=== PATIENT | female | born 1960 | race Caucasian/White ===

== ENCOUNTER 2023-08-30 06:30 | Day surgery (SDC) | payer BC, SELFPAY ==
[2023-08-29 13:13] VITALS: BMI 38.6
[2023-08-29 13:48] LABS: % Basophils 0.7 % (0-2); % Immature Granulocytes 0.4 % (0-0.5); % Lymphocytes 27.3 % (20.5-51.1); % Monocytes 5.3 % (1.7-9.3); % Neutrophils 63.3 % (42.2-75.2); Absolute Basophils 0.1 10^3/uL (0-0.2); Absolute Eosinophils 0.3 10^3/uL (0-0.7); Absolute Lymphocytes 2.3 10^3/uL (1.2-3.4); Absolute Monocytes 0.4 10^3/uL (0.1-0.6); Absolute Neutrophils 5.2 10^3/uL (1.4-6.5); Hematocrit 36.1 % (37.0-47.0); Hemoglobin 12.5 g/dL (12.0-16.0); Mean Corp Hgb Conc. 34.6 g/dL (33.0-37.0); Mean Corpuscular Hgb 30.6 pg (27.0-31.0); Mean Corpuscular Volume 88.3 fL (81.0-99.0); Mean Platelet Volume 8.1 fL (7.4-10.4); Nucleated Red Blood Cells % 0 %; Platelet Count 335 10^3/uL (130-400); Red Blood Cell Count 4.09 10^6/uL (4.20-5.40); Red Cell Dist. Width 13.5 % (11.5-14.5); White Blood Cell Count 8.2 10^3/uL (4.8-10.8)
[2023-08-29 13:59] LABS: Blood Urea Nitrogen 9 mg/dl (7-17); Calcium 9.8 mg/dl (8.4-10.2); Carbon Dioxide 27 mmol/L (22-30); Chloride 102 mmol/L (98-107); Estimated Creatinine Clearance 90 ml/min; Glucose 96 mg/dl (70-99); Potassium 4.1 mmol/L (3.5-5.1); Sodium 136 mmol/L (135-145); eGFR > 60.00
[2023-08-30 08:51] VITALS: BMI 38.6
[2023-08-30 08:52] VITALS: BP 167/109
[2023-08-30] MEDS: NORMOSOL-R 1000 IV (09:20)
[2023-08-30 10:03] VITALS: BP 130/74; BP_SYST 12
--- NOTE | 2023-08-30 10:11 | W.IMMPOSTOP ---
Surgical Immed Post Op Note
-
Primary Surgeon: Darleen Garcia DO
Assisting Surgeon: none
Pre-op Diagnosis: Thickened endometrial lining on Ultrasound
Post-op Diagnosis: same, endometrial polyp
Procedure Performed: Hysteroscopy D&C polypectomy
Anesthesia Type: MAC IV sedation Dr. Samaniego
Specimen / Cultures: 1. endocervical curettings 2. endometrial curettings and polyp
Estimated Blood Loss: 2ml
Fluid deficit:45 ml
Complications: none
Operative Findings: Uterus sounded to 8 cm, endometrial polyp noted. Bilateral tubal ostia seen.
Counts correct times 2.
Stable to recovery.
Dictated
[2023-08-30 10:15] VITALS: BP 130/83
[2023-08-30 10:30] VITALS: BP 150/89
[2023-08-30 11:00] VITALS: BP 130/77
== END 2023-08-30 11:15 | disposition home or self-care (01) ==
LOC: SDS 06:30
PROVIDERS: ATTENDING PHYSICIAN Obstetrics & Gynecology; FAMILY PHYSICIAN Family Medicine
DX: N84.0 Polyp of corpus uteri (principal); R93.89 Abnormal findings on diagnostic imaging of other specified body structures; D26.1 Other benign neoplasm of corpus uteri
CPT/HCPCS: 58558; 88305; 36415; 80048; 85025; 86850; 86900; 86901; 88341; 88342; 93005

== ENCOUNTER → 2023-09-19 20:06 | Outpatient (REF) | payer BC, SELFPAY ==
--- NOTE | 2023-08-30 09:28 | W.SUR.PREOP ---
Pre-Operative Surgical Note
-
I have examined this patient prior to the performance of the scheduled procedure.
The patient's condition is unchanged from the time of the current History and
Physical and the patient is able to undergo the scheduled procedure.
== END ==
LOC: MRI 3T 20:06
PROVIDERS: ATTENDING PHYSICIAN Obstetrics & Gynecology; FAMILY PHYSICIAN Family Medicine
DX: D39.11 Neoplasm of uncertain behavior of right ovary (principal); R93.89 Abnormal findings on diagnostic imaging of other specified body structures
CPT/HCPCS: 72197; A9575

== ENCOUNTER → 2023-10-02 17:14 | Outpatient (REF) | payer BC, SELFPAY | LOC: MRI 17:14 | PROVIDERS: ATTENDING PHYSICIAN Physician Assistant Medical; FAMILY PHYSICIAN Family Medicine | DX: K83.8 Other specified diseases of biliary tract (principal) | CPT/HCPCS: 74183; A9575 ==

== ENCOUNTER 2023-11-08 06:32 | Day surgery (SDC) | payer BC, SELFPAY ==
[2023-10-25 08:56] LABS: % Basophils 0.7 % (0-2); % Eosinophils 3.6 % (0-6); % Immature Granulocytes 0.1 % (0-0.5); % Lymphocytes 23.6 % (20.5-51.1); % Monocytes 6.5 % (1.7-9.3); % Neutrophils 65.5 % (42.2-75.2); Absolute Basophils 0.1 10^3/uL (0-0.2); Absolute Eosinophils 0.3 10^3/uL (0-0.7); Absolute Lymphocytes 1.7 10^3/uL (1.2-3.4); Absolute Monocytes 0.5 10^3/uL (0.1-0.6); Absolute Neutrophils 4.6 10^3/uL (1.4-6.5); Hematocrit 35.7 % (37.0-47.0); Hemoglobin 12.5 g/dL (12.0-16.0); Mean Corpuscular Hgb 30.8 pg (27.0-31.0); Mean Corpuscular Volume 87.9 fL (81.0-99.0); Mean Platelet Volume 8.4 fL (7.4-10.4); Nucleated Red Blood Cells % 0 %; Platelet Count 336 10^3/uL (130-400); Red Blood Cell Count 4.06 10^6/uL (4.20-5.40); Red Cell Dist. Width 13.3 % (11.5-14.5)
[2023-10-25 09:35] LABS: Blood Urea Nitrogen 11 mg/dl (7-17); Calcium 9.4 mg/dl (8.4-10.2); Carbon Dioxide 29 mmol/L (22-30); Chloride 104 mmol/L (98-107); Glucose 121 mg/dl (70-99); Potassium 4.2 mmol/L (3.5-5.1); Sodium 138 mmol/L (135-145); eGFR > 60.00
[2023-10-25 13:42] VITALS: BMI 36.8
--- NOTE | 2023-10-25 14:03 | PTCARENOTE ---
Abnormal EKG 10/25/23. Dr. Deutsch aware. No intervention needed.
[2023-11-08] VITALS (21 sets, daily range): BP systolic 123–169; BP diastolic 74–102; BMI 37.2
[2023-11-08] MEDS: TYLENOL 1000 MG PO (10:16)
[2023-11-08] MEDS: NORMOSOL-R 1000 IV ×2 (10:17→18:27)
[2023-11-08] MEDS: HEPARIN 5000 UNITS SC (10:17)
--- NOTE | 2023-11-08 10:33 | W.SUR.PREOP ---
Pre-Operative Surgical Note
-
I have examined this patient prior to the performance of the scheduled procedure.
The patient's condition is unchanged from the time of the current History and
Physical and the patient is able to undergo the scheduled procedure.
Patient would like to go home today after recovery. Asked anesthesia to please do TAP block.
DW patient
--- NOTE | 2023-11-08 13:52 | W.IMMPOSTOP ---
Addendum entered and electronically signed by Darleen Garcia DO 11/08/23 23:01:
TAP block performed after intubation by Dr. Steel
Original Note:
Surgical Immed Post Op Note
-
Primary Surgeon: Darleen Garcia DO
Assisting Surgeon: Dr. Gaston assisted with robotic assisted retroperitoneal exploration and enterolysis
Pre-op Diagnosis: Large right adnexal cystic mass
Post-op Diagnosis: same
Procedure Performed: Laparoscopic lysis adhesions, robotic laparoscopic TLH BSO (Dr. Garcia), Robotic assisted retropertioneal exploration and Enterolysis (Dr. Gaston)
Anesthesia Type: general ET Dr. Steel
Specimen / Cultures: 1. pelvic washings 2. uterus, cervix, left tube and ovary (specimen all attached), right tube and ovary with collapsed cyst (specimen detached from uterus)
Estimated Blood Loss: 20ml
Complications: none
Operative Findings: Normal sized uterus, normal appearing uterus, tubes. Left tube and ovary with pelvic adhesions. Right ovary contains a large approx 10 cm simple cyst with smooth surface and normal appearing right fallopian tube. Omental
adhesion to anterior abdominal wall in midline-lysed.
Cesar 500ml clear yellow urine
Counts correct times 2.
Stable to recovery.
--- NOTE | 2023-11-08 14:18 | OR.RPT ---
Operative Report
Operative Report
Procedure date: November 07, 2023
Preoperative diagnosis right pelvic mass/ovary cyst
Postoperative diagnosis same plus intra-abdominal and retroperitoneal adhesions
Surgeon: Long Gaston MD
Procedure: Robotic assisted laparoscopic retroperitoneal exploration, and enterolysis and assistance with total laparoscopic hysterectomy bilateral salpingo-oophorectomy
Procedure in detail: I was called to the operating room by Dr. Garcia during the course of the procedure. Robotic system was already docked and the patient was already in Trendelenburg instruments were already in place. Upon my arrival lysis of
adhesion was performed overlying the right and left side of the pelvis. I used grasping forceps on the right side and bipolar cautery on the left side and scissors on the right. Round ligament had already been ligated, anterior and posterior
leaves of the broad ligament dissected open, the course of the ureter was identified on the right side, a window was created between the ureter and IP ligament. The large right simple appearing ovarian cyst on the right was sealed and divided from
the uterus and the infundibulopelvic ligament portion was isolated sealed 3 times and eventually divided. The cyst was left in the abdomen. Next our attention was turned to the left side. Extensive adhesions between the left IP ligament and
sigmoid colon was taken down, posterior leaf of the broad ligament dissected open, retroperitoneum was explored and the course of ureter was identified. Avascular plane was developed between the IP ligament and ureter IP ligament was sealed 3 times
and divided the left tube and ovary was left attached to the uterus. Extensive adhesions were present on the anterior cul-de-sac and these were taken down and the vesicouterine space was developed all the way down to the level of CHILO ring. Both
uterine arteries were sealed 3 times and divided and then a circumferential incision was made eventually over the CHILO ring to detach the uterus and cervix from the vagina. I noted that the primary team removed the uterus and cervix through the
vagina attached to the specimen was also left tube and ovary. The right ovarian mass was brought down to the posterior cul-de-sac, we made a incision on its apical aspect and drained it of approximately 600 cc of fluid and once it was collapsed
there was brought out through the vagina. There was no significant leakage of any of the fluid in the peritoneal cavity. I turned the case over to gynecology team for performing closure of the vaginal cuff and completion of laparoscopy. Counts of
labs instruments and needle was correct x 2. I was present and scrubbed for entire procedure as dictated above.
--- NOTE | 2023-11-08 14:24 | SUR.PHASEI ---
Rec'd unresponsive on stretcher, HOb elevated low fowlers on arrival, snoring loudly, sandra pad dry
--- NOTE | 2023-11-08 14:39 | SUR.PHASEI ---
More alert, oriented x 3 by RN, states has 'to pee' bedpan given chetan well
--- NOTE | 2023-11-08 14:50 | SUR.PHASEI ---
Unable to void on bedpan, c/o 'bladder Pain' reassured
[2023-11-08] MEDS: DILAUDID 0.25 MG IV ×2 (14:53→15:15)
--- NOTE | 2023-11-08 15:02 | SUR.PHASEI ---
Med for bladder pressure discomfort, states 'feels like a bladder spasm' reassured
--- NOTE | 2023-11-08 15:20 | SUR.PHASEI ---
bladder scan reveals 375 in bladder discomfort for scan med chetan well
--- NOTE | 2023-11-08 15:32 | SUR.PHASEI ---
VSS lightly dozing
[2023-11-08] MEDS: Pyridium 200 MG PO ×2 (15:47→21:34)
--- NOTE | 2023-11-08 15:51 | SUR.PHASEI ---
More alert, med for bladder spasm, chetan well, reassured pt stating 'Im not going home like this' reassured
--- NOTE | 2023-11-08 16:05 | SUR.PHASEI ---
More alert, after voiding on bedpan states pain is now a sharp pain, repositioned for comfort chetan well encouraged to rest Report to Lucho Hebert RN
--- NOTE | 2023-11-08 16:15 | W.PN.OBG.DWH ---
Today's Communication / Plan
-
23 hr obs overnight
parenteral pain meds
monitoring for appropriate voids and pain mgmt, bleeding
Anticipate dc in am
Assessment/Plan
-
A/P: : S/p RA TLH b/l salpingectomy, lysis adhesions, enterolysis
Right adnexal cystic mass
Will admit overnight for monitoring for analgesia and bleeding risk.
Anticipate dc in am.
reviewed dc instructions.
Erx sent to pharm
pyridium for bladder.
Reviewed op findings and involvement of Dr. Gaston in case for more complicated retroperitoneal dissection and enterolysis
Subjective Data
-
Postop check:
Seen in PACU. Pt reporting feeling bladder irriation and pain and does not feel able to go home today.
Has voided once
Objective Data
-
Laboratory Results
10/25/23 08:17
10/25/23 08:17
Vital Signs
Temp Pulse Resp BP Pulse Ox
98.2 F 99 14 133/82 97
11/08/23 14:19 11/08/23 16:00 11/08/23 16:00 11/08/23 16:00 11/08/23 16:15
VSS afeb
abd: soft NDNT inc cdi
no active vaginal bleeding
[2023-11-08] MEDS: DILAUDID 0.5 MG IV (16:18)
[2023-11-08] MEDS: TORADOL 15 MG IV (21:15)
[2023-11-08] MEDS: TYLENOL 650 MG PO (21:16)
[2023-11-08] MEDS: MYLICON 80 MG PO (21:24)
--- NOTE | 2023-11-08 23:22 | W.PN.UPDATE ---
Update Note
Progress Note Update
Checking in remotely on vitals.
Pt's BP has been elevated this evening.
Ordered her amlodipine 2.5 mg now due to elevated BPs.
[2023-11-08] MEDS: NORVASC 2.5 MG PO (23:38)
[2023-11-09] MEDS: TORADOL 15 MG IV ×2 (02:18→07:50)
[2023-11-09] MEDS: NORMOSOL-R 1000 IV (02:18)
[2023-11-09] MEDS: TYLENOL 650 MG PO ×2 (02:25→06:15)
[2023-11-09 03:43] VITALS: BP 124/77
[2023-11-09] MEDS: SYNTHROID 100 MCG PO (06:12)
[2023-11-09 07:35] VITALS: BP 140/85
[2023-11-09 08:45] LABS: % Basophils 0.2 % (0-2); % Eosinophils 0.1 % (0-6); % Immature Granulocytes 0.4 % (0-0.5); % Lymphocytes 16.6 % (20.5-51.1); % Monocytes 6.6 % (1.7-9.3); % Neutrophils 76.1 % (42.2-75.2); Absolute Lymphocytes 1.5 10^3/uL (1.2-3.4); Absolute Monocytes 0.6 10^3/uL (0.1-0.6); Absolute Neutrophils 6.9 10^3/uL (1.4-6.5); Hemoglobin 11.1 g/dL (12.0-16.0); Mean Corp Hgb Conc. 34.7 g/dL (33.0-37.0); Mean Corpuscular Volume 86.5 fL (81.0-99.0); Nucleated Red Blood Cells % 0 %; Platelet Count 308 10^3/uL (130-400); Red Cell Dist. Width 13.4 % (11.5-14.5)
[2023-11-09 09:45] LABS: Blood Urea Nitrogen 8 mg/dl (7-17); Carbon Dioxide 23 mmol/L (22-30); Chloride 101 mmol/L (98-107); Estimated Creatinine Clearance 89 ml/min; Potassium 3.5 mmol/L (3.5-5.1); Sodium 135 mmol/L (135-145)
--- NOTE | 2023-11-09 10:15 | W.PN.OBG.DWH ---
Today's Communication / Plan
-
d/c home today.
Assessment/Plan
-
63yo POD#1 s/p Laparoscopic lysis adhesions, robotic laparoscopic TLH BSO (Dr. Garcia), Robotic assisted retropertioneal exploration and Enterolysis (Dr. Gaston)
-afss
-patient is doing well post-op, has met all of her post-op milestones and is stable for dc home today. reviewed home care instructions. Rx already sent to pharmacy by surgeon. Patient advised to f/u in the office in 2 weeks for a post-op check
Subjective Data
-
feels well. had nausea overnight but this is improved. able to tolerate PO intake today. +ambulation, +void. slight spotting yesterday but this has also resolved. Pain is controlled. +flatus.
Objective Data
-
Laboratory Results
11/09/23 08:26
11/09/23 08:26
Vital Signs
Temp Pulse Resp BP Pulse Ox
98.3 F 112 16 140/85 97
11/09/23 07:35 11/09/23 07:35 11/09/23 07:35 11/09/23 07:35 11/09/23 07:35
Gen: nad
Abd: soft, nt, nd
Incision:c /d/i
Ext: no LE ttp, compression socks in place
[2023-11-09 10:31] VITALS: BP 146/79
--- NOTE | 2023-11-09 11:15 | CM ---
Carlos Manuel lives with spouse in a 2 story home, patient is independent with adl's and ambulation, no dme, Home when stable no needs.
Pharmacy: [facility]
PCP: Lexy Andrews
Plan; Home no needs.
== END 2023-11-09 11:08 | disposition home or self-care (01) ==
LOC: SDS 06:32
PROVIDERS: ATTENDING PHYSICIAN Obstetrics & Gynecology; FAMILY PHYSICIAN Family Medicine
DX: D27.0 Benign neoplasm of right ovary (principal); D25.9 Leiomyoma of uterus, unspecified
CPT/HCPCS: 58571; 88307; 36415; 80048; 80051; 82565; 84520; 85025; 86850; 86900; 86901; 88112; 93005

== ENCOUNTER 2024-01-27 20:39 | Emergency (ER) | payer BC, SELFPAY ==
[2024-01-27 20:45] VITALS: BP 184/102
--- NOTE | 2024-01-27 20:59 | ED.GENMED ---
History of Present Illness
<Chiquis Mason MD, Resident - Last Filed: 01/27/24 22:18>
General
Chief Complaint: Heart Rate Problem
Source: patient
Exam Limitations: none
Time Seen by Provider: 01/27/24 20:58
Nursing documentation reviewed up to this point in time: agreed with
Travel History
Have you traveled to any high risk areas for coronavirus over the past 14 days?: No
Have you had any contact with someone who has COVID-19?: No
Do you have any symptoms of coronavirus? Fever > 100 degrees, chills, cough, shortness of breath, sore throat, loss of taste or smell, muscle aches, or headache?: No
History of Present Illness
History of Present Illness:
63-year-old female presents to the hospital after evaluation by her primary care in the outpatient office, and was thought to have atrial fibrillation. Patient states that she has been having left-sided unilateral headaches for 3 to 4 days as if '
somebody slicing me', throbbing in nature, intermittent, nonradiating, nonpulsatile, not associated with any focal weakness, or change in sensations. She denies having any associated blurring of vision, nausea, vomitings, lightheadedness,
dizziness, swelling of feet, orthopnea, PND, shortness of breath, chest pain, palpitations. She called her headaches migraines, she states that she had a previous history of migraines (undiagnosed), but she had not experienced headaches in the last
few years. Over the last 1 and half months patient was on TOMAS or ARB inhibitor unsure which but states that this medication attributed to her GI symptoms-and she discontinued the medication and was switched to amlodipine by her primary.
This prompted her to see the primary care physician in the p.m. today.
Past history of thyroid surgery, currently hypothyroid, has been stable on levothyroxine.
Patient also states that she was recently diagnosed with prediabetes.
If applicable-neuro sx onset
Onset of symptoms known: No
Time pt last seen normal is known: No
Past History
<Chiquis Mason MD, Resident - Last Filed: 01/27/24 22:18>
Past History
ED Past Medical History: Other (Hypertension, hypothyroidism, recent onset headaches, impaired fasting glucose.)
ED Past Surgical History: Other (Thyroidectomy.)
Patient has exhibited threatening behavior?: No
PSI?: No
Family History
Family History: Other
Review of Systems
<Chiquis Mason MD, Resident - Last Filed: 01/27/24 22:18>
Review of Systems
Allergies reviewed?: Yes
Unable to obtain full review of systems at this time due to: dementia
All Other Systems: ROS reviewed and negative except as documented in HPI and ROS
Constitutional: Reports no symptoms
EENT: Reports no symptoms
Respiratory: Reports no symptoms
Cardiac: Reports no symptoms
ABD/GI: Reports no symptoms
: Reports no symptoms
Musculoskeletal: Reports no symptoms
Skin: Reports no symptoms
Neurological: Reports headache; Denies dizzy, weakness or numbness
Endocrine: Reports no symptoms
Hematologic/Lymphatic: Reports no symptoms
Psychiatric: Reports no symptoms
Phy Exam
<Chiquis Mason MD, Resident - Last Filed: 01/27/24 22:18>
Physical Exam
Physical Exam:
General appearance - well built, and well nourished.
HEENT -palpable click at TMJ left greater than right jaw opening, atraumatic,
Eyes - b/l Pupil reactive to accommodation reflex, extraocular movements - full and smooth
Ears - right ear - auditory canal clear, tympanic membrane visualized, light reflex present., left ear - auditory canal clear, tympanic membrane visualized, light reflex present.
Nose - septum intact, no turbinate hypertrophy
Oral cavity - pharynx appears normal, uvula midline, good dental hygiene.
Neck - no thyromegaly, no cervical lymphadenopathy
CVS - s1, s2 present. No murmurs, rubs and gallops.
Respiratory - b/l lobes clear to auscultation, no wheezes, rales and Ronchi.
Abdomen - soft, nontender, non-distended, no organomegaly, bowel sounds present.
Extremities - no clubbing, cyanosis, or edema
Neuro - normal strength, tone, and reflexes in all 4 extremities�
Psych - Good eye contact, effect - full, co-operative with physical exam.
Course
<Chiquis Mason MD, Resident - Last Filed: 01/27/24 22:18>
Orders/Labs/Results
Orders:
Orders
01/27/24 20:48
ECG [Electrocardiogram (*1)] Urgent
Reason for Study: Hypertension, Benign
EKG- Treatment ONCE
01/27/24 21:24
Electrocardiogram (*1) Urgent
Reason for Study: Abnormal EKG
Other Reason for Exam: Posterior anterior fasicular block
EKG- Treatment ONCE
01/27/24 21:36
Complete Blood Count/With Diff Urgent
Comprehensive Metabolic Panel Urgent
Troponin I Stat
01/27/24 21:40
Amlodipine [Norvasc] 2.5 mg PO DAILY STA
Amlodipine [Norvasc] 2.5 mg PO NOW STA
01/27/24 22:00
Amlodipine [Norvasc] 2.5 mg PO BID
Amlodipine [Norvasc] 2.5 mg PO HS
Abnormal Lab Results
01/27/24
21:36
RBC 3.98 L 10^6/uL
(4.20-5.40)
Hct 33.5 L %
(37.0-47.0)
Glucose 140 H mg/dl
(70-99)
Total Bilirubin 0.1 L mg/dl
(0.2-1.3)
AST 38 H U/L
(14-36)
ALT 43 H U/L
(0-35)
01/27/24 21:36
01/27/24 21:36
Vital Signs
Initial and Last Documented VS:
Initial Vital Signs
Temp Pulse Resp BP Pulse Ox
98.2 F 90 18 184/102 98
01/27/24 20:45 01/27/24 20:45 01/27/24 20:45 01/27/24 20:45 01/27/24 20:45
Last Documented Vital Signs
Temp Pulse Resp BP Pulse Ox
98.2 F 88 13 170/90 98
01/27/24 20:45 01/27/24 22:00 01/27/24 22:00 01/27/24 22:00 01/27/24 21:38
<Jair Davidson DO - Last Filed: 01/27/24 22:19>
Orders/Labs/Results
Orders:
Orders
01/27/24 20:48
ECG [Electrocardiogram (*1)] Urgent
Reason for Study: Hypertension, Benign
EKG- Treatment ONCE
01/27/24 21:24
Electrocardiogram (*1) Urgent
Reason for Study: Abnormal EKG
Other Reason for Exam: Posterior anterior fasicular block
EKG- Treatment ONCE
01/27/24 21:36
Complete Blood Count/With Diff Urgent
Comprehensive Metabolic Panel Urgent
Troponin I Stat
01/27/24 21:40
Amlodipine [Norvasc] 2.5 mg PO DAILY STA
Amlodipine [Norvasc] 2.5 mg PO NOW STA
01/27/24 22:00
Amlodipine [Norvasc] 2.5 mg PO BID
Amlodipine [Norvasc] 2.5 mg PO HS
Abnormal Lab Results
01/27/24
21:36
RBC 3.98 L 10^6/uL
(4.20-5.40)
Hct 33.5 L %
(37.0-47.0)
Glucose 140 H mg/dl
(70-99)
Total Bilirubin 0.1 L mg/dl
(0.2-1.3)
AST 38 H U/L
(14-36)
ALT 43 H U/L
(0-35)
01/27/24 21:36
01/27/24 21:36
Vital Signs
Initial and Last Documented VS:
Initial Vital Signs
Temp Pulse Resp BP Pulse Ox
98.2 F 90 18 184/102 98
01/27/24 20:45 01/27/24 20:45 01/27/24 20:45 01/27/24 20:45 01/27/24 20:45
Last Documented Vital Signs
Temp Pulse Resp BP Pulse Ox
98.2 F 88 13 170/90 98
01/27/24 20:45 01/27/24 22:00 01/27/24 22:00 01/27/24 22:00 01/27/24 21:38
<Chiquis Mason MD, Resident - Last Filed: 01/27/24 22:18>
MDM/Problems Addressed
Differential Diagnosis Includes:
[place], acute CAD, hypertensive urgency, TIA, TMJ disorder, migraines without aura.
MDM/Problems Addressed:
Hypertensive urgency-amlodipine 2.5 mg p.o. given.
Chronic conditions affecting care: HTN
<Chiquis Mason MD, Resident - Last Filed: 01/27/24 22:18>
*Radiology
Radiology exam reviewed: radiology read reviewed
*Pulse Oximetry
Patient hypoxic: not evaluated
*EKG
Interpreted by ED Provider?: Yes
EKG Intrepretation Date: 01/27/24
EKG Intrepretation Time: 09:00
Interpretation: abnormal
Comparison EKG: changes noted
Heart Rate: 90
Rate: normal
Rhythm: PAC's
[place]: normal axis
Interval: normal interval
QRS Pattern: normal QRS
Ischemia: no ischemia
*Ornithology Teacher Interpretation
Rate: normal
Interpretation: normal
Rhythm: PAC's
*Critical Care Note
Total Time (30-74mins, 75-104mins- exclusive of procedures): Not Applicable
Data Reviewed
Review of Other/Old Records Reveals: Labs
Source: patient
<Chiquis Mason MD, Resident - Last Filed: 01/27/24 22:18>
Update Note
Update Note:
Patient's lab resulted-troponins less than 0.012, serum creatinine unremarkable, CBC unremarkable, mild transaminitis suspect secondary to fatty liver.
Amlodipine 2.5 mg p.o.-Home dose blood pressure medication given to the patient.
Follow-up with primary care in 1 week.
ED Attending Note
<Chiquis Mason MD, Resident - Last Filed: 01/27/24 22:18>
-
Portions of this chart may have been created with voice recognition software.� Occasional wrong word or��sound alike� substitutions may have occurred due to the inherent limitations of voice recognition software.
<Jair Davidson DO - Last Filed: 01/27/24 22:19>
ED Attending Note
Patient seen and examined by attending physician: Yes
I performed a history and physical exam of patient and discussed management with resident, I reviewed resident's note and agree with documented findings and plan of care.: Yes
ED Attending Note:
Patient is a 63-year-old female who is sent from her primary care physician's office for new onset atrial fibrillation. A review of the EKG from the office does not show atrial fibrillation but normal sinus rhythm with PACs. Otherwise EKGs is
unremarkable. Patient's first EKG here showed an abnormal axis so was repeated ensuring proper limb lead placement. The EKG is unchanged from previous. Patient went to her primary care physician's office secondary to 4 days of headaches which she
described as left frontal. Patient denies any photophobia, nausea or vomiting. Patient denies any visual or speech difficulties. Patient denies any neck pain. Patient denies any focal weakness or ataxia. Patient denied any recent illnesses or
injuries. Patient was switched off of her previous hypertensive medication in the spring after she had gallbladder and pancreas issues. Patient denies any chest pain, shortness of breath or palpitations. Patient denies any GI or symptoms.
Patient's blood pressure has been running high recently and her amlodipine was being increased from 2.5 to 5 mg. Patient has not changed weight or had any symptoms of being hyper or hypothyroid and her Synthroid has been consistent. On physical
exam the patient does not appear to be in any distress. Heart is regular without gallop or murmur. Lungs are clear. There is no neck vein distention. Patient's neck is supple. Abdomen soft nontender. Extremities without cyanosis, tenderness or
edema. Patient has good pulses bilaterally in the periphery. Reviewed the patient's EKG as well as her labs. Patient will be discharged.
Discharge Plan
Departure
Prescriptions:
No Action
levothyroxine [Synthroid] 100 mcg Tablet
100 mcg PO DAILY
albuterol sulfate 90 mcg/actuation Hfa Aerosol Inhaler
2 puff INHALATION Q6H PRN (Reason: sob)
magnesium Tablet
2 tab PO DAILY
amlodipine 2.5 mg Tablet
2.5 mg PO DAILY
acetaminophen 325 mg Tablet
650 mg PO SDS-[id number] PRN (Reason: mild pain) Qty: 0 0RF
ibuprofen 600 mg tablet
600 mg PO Q6H PRN (Reason: cramps/mild pain) Qty: 30 0RF
Referrals:
Nadwodny,Lexy A., DO [Family Provider] -
Interventions
Interventions:
*Risk Screen - Suicide Last Done: 01/27/24 21:21
*General Assessment Last Done: 01/27/24 20:45
*Neglect/Abuse Screening Last Done: 01/27/24 21:20
ED- Fall Risk Assessment Last Done: 01/27/24 21:21
*ED COVID-19 Vaccine History Last Done: 01/27/24 21:20
ED- Cardiac Assessment Last Done: 01/27/24 21:21
ED- Pulmonary Assessment Last Done: 01/27/24 21:21
Discharge Date and Time
Print Language: SWEDISH
[2024-01-27 21:19] VITALS: BP 157/83; BMI 39.1
[2024-01-27 21:38] VITALS: BP 160/90
[2024-01-27 21:43] LABS: % Basophils 0.8 % (0-2); % Eosinophils 3.1 % (0-6); % Immature Granulocytes 0.4 % (0-0.5); % Lymphocytes 28.3 % (20.5-51.1); % Neutrophils 60.4 % (42.2-75.2); Absolute Basophils 0.1 10^3/uL (0-0.2); Absolute Eosinophils 0.3 10^3/uL (0-0.7); Absolute Lymphocytes 2.3 10^3/uL (1.2-3.4); Absolute Monocytes 0.6 10^3/uL (0.1-0.6); Absolute Neutrophils 4.8 10^3/uL (1.4-6.5); Hematocrit 33.5 % (37.0-47.0); Mean Corp Hgb Conc. 35.8 g/dL (33.0-37.0); Mean Corpuscular Hgb 30.2 pg (27.0-31.0); Mean Corpuscular Volume 84.2 fL (81.0-99.0); Mean Platelet Volume 8.1 fL (7.4-10.4); Nucleated Red Blood Cells % 0 %; Platelet Count 327 10^3/uL (130-400); Red Blood Cell Count 3.98 10^6/uL (4.20-5.40); Red Cell Dist. Width 13.3 % (11.5-14.5)
[2024-01-27] MEDS: NORVASC 2.5 MG PO (21:46)
[2024-01-27 22:00] VITALS: BP 170/90
[2024-01-27 22:01] LABS: ALT (SGPT) 43 U/L (0-35); AST (SGOT) 38 U/L (14-36); Albumin 3.8 g/dl (3.5-5.0); Alkaline Phosphatase 67 U/L (38-126); Blood Urea Nitrogen 12 mg/dl (7-17); Calcium 9.2 mg/dl (8.4-10.2); Carbon Dioxide 28 mmol/L (22-30); Chloride 99 mmol/L (98-107); Estimated Creatinine Clearance 64 ml/min; Glucose 140 mg/dl (70-99); Potassium 3.5 mmol/L (3.5-5.1); Sodium 139 mmol/L (135-145); Total Bilirubin 0.1 mg/dl (0.2-1.3); Total Protein 6.4 g/dl (6.3-8.2); eGFR > 60.00
[2024-01-27 22:10] LABS: Troponin I < 0.012 ng/ml
[2024-01-27 22:26] VITALS: BP 150/98
== END 2024-01-27 22:34 | disposition home or self-care (01) ==
LOC: EMR 20:39
PROVIDERS: Student in an Organized Health Care Education/Training Program; EMERGENCY PHYSICIAN Emergency Medicine; FAMILY PHYSICIAN Family Medicine
DX: I16.0 Hypertensive urgency (principal); R51.9 Headache, unspecified; E89.0 Postprocedural hypothyroidism; Z79.899 Other long term (current) drug therapy
CPT/HCPCS: 99284; 80053; 84484; 85025; 93005

== ENCOUNTER 2024-04-13 17:39 | Inpatient (IN) | payer BC, SELFPAY ==
[2024-04-13 13:06] VITALS: BP 169/108
[2024-04-13 13:29] LABS: % Basophils 0.6 % (0-2); % Eosinophils 1.7 % (0-6); % Immature Granulocytes 0.3 % (0-0.5); % Lymphocytes 22.1 % (20.5-51.1); % Monocytes 5.4 % (1.7-9.3); % Neutrophils 69.9 % (42.2-75.2); Absolute Eosinophils 0.1 10^3/uL (0-0.7); Absolute Lymphocytes 1.5 10^3/uL (1.2-3.4); Absolute Monocytes 0.4 10^3/uL (0.1-0.6); Absolute Neutrophils 4.8 10^3/uL (1.4-6.5); Hematocrit 38.4 % (37.0-47.0); Hemoglobin 13.1 g/dL (12.0-16.0); Mean Corp Hgb Conc. 34.1 g/dL (33.0-37.0); Mean Corpuscular Hgb 30.3 pg (27.0-31.0); Mean Corpuscular Volume 88.9 fL (81.0-99.0); Mean Platelet Volume 8.1 fL (7.4-10.4); Nucleated Red Blood Cells % 0 %; Platelet Count 367 10^3/uL (130-400); Red Blood Cell Count 4.32 10^6/uL (4.20-5.40); Red Cell Dist. Width 13.3 % (11.5-14.5); White Blood Cell Count 6.9 10^3/uL (4.8-10.8)
[2024-04-13 13:42] LABS: ALT (SGPT) 667 U/L (0-35); AST (SGOT) 618 U/L (14-36); Albumin 4.3 g/dl (3.5-5.0); Alkaline Phosphatase 191 U/L (38-126); Blood Urea Nitrogen 7 mg/dl (7-17); Calcium 9.3 mg/dl (8.4-10.2); Carbon Dioxide 30 mmol/L (22-30); Chloride 100 mmol/L (98-107); Glucose 101 mg/dl (70-99); Lipase 91 U/L (23-300); Potassium 3.8 mmol/L (3.5-5.1); Sodium 140 mmol/L (135-145); Total Bilirubin 0.5 mg/dl (0.2-1.3); Total Protein 7.3 g/dl (6.3-8.2); eGFR > 60.00
--- NOTE | 2024-04-13 14:11 | ED.GENMED ---
History of Present Illness
General
Chief Complaint: Abdominal Pain
Source: patient
Exam Limitations: none
Time Seen by Provider: 04/13/24 14:04
Nursing documentation reviewed up to this point in time: agreed with
History of Present Illness
History of Present Illness:
Patient presents to ED secondary to intermittent upper abdominal pain. Abdominal pain described as sharp, radiating to the back, without alleviating or exacerbating factors. Denies fever or chills. Denies trauma. Patient has similar episode last
year. MRI at that time revealed gallstones. Afterwards, patient felt better after seeing stone with her bowel movements. Recently, once every 4 to 5 days, patient has been experiencing severe abdominal pain. Patient was evaluated by her primary
care physician this morning and referred to ED for an evaluation.
Past History
Past History
ED Past Medical History: Other (Hypertension, hypothyroidism, recent onset headaches, impaired fasting glucose.)
ED Past Surgical History: Other (Thyroidectomy.)
Patient has exhibited threatening behavior?: No
PSI?: No
Family History
Family History: Other
Review of Systems
Review of Systems
Allergies reviewed?: Yes
All Other Systems: ROS reviewed and negative except as documented in HPI and ROS
Constitutional: Reports no symptoms; Denies fever
EENT: Reports no symptoms
Respiratory: Reports no symptoms
Cardiac: Reports no symptoms
ABD/GI: Reports abdominal pain; Denies vomiting or diarrhea
Musculoskeletal: Reports no symptoms
Skin: Reports no symptoms
Neurological: Reports no symptoms
Phy Exam
Physical Exam
Physical Exam:
Physical Exam
General: no apparent distress, not acutely ill. afebrile
Head: nc/at. eomi
Neck: supple. no meningeal signs.
Heart: s1/s2 regular rate and rhythm, no murmur. equal radial pulses.
Lungs: no acute respiratory distress. clear bilaterally
Abdomen: normal bowel sounds. not tender.
Neuro: alert and oriented. no focal neurological deficits
Skin: no rash
Psychiatric: well kept. interactive and cooperative
Extremities: no edema. no calf tenderness.
Course
Orders/Labs/Results
Orders:
Orders
04/13/24 13:16
Complete Blood Count/With Diff Urgent
Comprehensive Metabolic Panel Urgent
Lipase Urgent
04/13/24 14:10
US Abdomen Complete/Upper Urgent
Comment:
Reason For Exam: RUQ/Epigastric pain
04/13/24 Dinner
Full Liquids
At Your Request: Full Participation
04/13/24 17:00
Admit/Transfer Patient As Directed
Co-Sign Provider:
Level of Care: Inpatient admission
Assign to:: Medical/Surgical
Physician / Group: Lexy Bertrand
Diagnosis: abdominal pain
Reason for Hospitalization: abdominal pain
Expected length of stay greater than two midnights?: Yes
ELOS- Estimated Length of Stay in days: 3
I certify the patient meets the requirements for IP care: Yes
PRN Pain Medication Management As Directed
May give lesser potent ordered pain med per pt: Yes
preference::
Protocol:: Medication orders for pain may be administered in a
manner that supports deferring to patient preference
when the pt is:
- Requesting an ordered lesser potent pain medication.
Least to most potent pain medications are defined
as: acetaminophen < NSAID < tramadol < opioids
(morphine, oxycodone, hydromorphone).
- Requesting a lesser dose of the same medication IF
ORDERED.
- Requesting a less intrusive route of administration
if both routes are prescribed by the provider (PO <
IV).
04/13/24 17:06
Code Status As Directed
Resuscitation Status: Full Code
04/13/24 19:45
HYDROmorphone [Dilaudid] 0.5 mg IV Q3HPRN PRN
Ondansetron Injectable [Zofran] 4 mg IV Q6HPRN PRN
04/13/24 19:45
Consult Gastroenterology [GASTROINTESTINAL CONSULT] Routine
Consulting Provider: Urvashi Olivares
Was physician already notified: Yes
SURGICAL CONSULT Routine
Consulting Provider: David Syzmanski
Was physician already notified: Yes
Activity As Directed
Activity Level: Ambulate
Vital Signs As Directed
Frequency: Per unit guidelines
Weight As Directed
Frequency: Once
DX Deep Vein Thrombosis Video Routine
04/13/24 20:00
CefTRIAXone [Rocephin] 1,000 mg IV Q24H
MetroNIDAZOLE 500 MG/100 ML [Flagyl 500 mg] 100 ml IV Q8H
04/14/24 Breakfast
NPO
Allow oral meds: Yes
Allow clear liquids: No
Levothyroxine [Synthroid] 100 mcg PO DAILY @ 0600
04/14/24 06:15
Complete Blood Count/No Diff IN AM
Comprehensive Metabolic Panel IN AM
04/14/24 08:00
Amlodipine [Norvasc] 5 mg PO DAILY
Magnesium l-Lactate [Mag-Tab Sr] 84 mg PO DAILY
04/14/24 16:27
MR Abdomen W/o & W Contrast Routine
Comment: DO MRI AND MRCP BOTH
Reason For Exam: abd pain, gallstones, elev lft
Recent pill cam endoscopy?: No
Abnormal Lab Results
04/13/24
13:16
Glucose 101 H mg/dl
(70-99)
AST 618 H* U/L
(14-36)
ALT 667 H* U/L
(0-35)
Alkaline Phosphatase 191 H U/L
(38-126)
04/13/24 13:16
04/13/24 13:16
Vital Signs
Initial and Last Documented VS:
Initial Vital Signs
Temp Pulse Resp BP Pulse Ox
97.5 F 96 16 169/108 100
04/13/24 13:06 04/13/24 13:06 04/13/24 13:06 04/13/24 13:06 04/13/24 13:06
Last Documented Vital Signs
Temp Pulse Resp BP Pulse Ox
98.1 F 79 16 131/72 97
04/14/24 07:36 04/14/24 07:36 04/14/24 07:36 04/14/24 07:58 04/14/24 07:36
MDM/Problems Addressed
MDM/Problems Addressed:
Abnormal LFTs noted along with abdominal ultrasound report. Discussed with on-call surgery, Dr. Bravo, who recommends further evaluation, including potential CT versus MRCP. As patient remains symptomatic, patient will be admitted for further
evaluation and treatment. At this time, however, patient defers any pain medication.
*Critical Care Note
Total Time (30-74mins, 75-104mins- exclusive of procedures): Not Applicable
ED Attending Note
-
Portions of this chart may have been created with voice recognition software.� Occasional wrong word or��sound alike� substitutions may have occurred due to the inherent limitations of voice recognition software.
Discharge Plan
Departure
Patient Disposition: Admit
Date of Disposition: 04/13/24
Time of Disposition: 16:14
Admit to: Med/Surg
Presentation/result/management discussed w/ accepting MD/DO: Hospitalist
Discharge Problem:
Biliary colic, Abnormal LFTs
Interventions
Interventions:
*Risk Screen - Suicide Last Done: 04/13/24 13:06
*General Assessment Last Done: 04/13/24 13:06
*Neglect/Abuse Screening Last Done: 04/13/24 19:54
*ED COVID-19 Vaccine History Last Done: 04/13/24 13:06
*Nursing Disposition Last Done: 04/13/24 19:54
TG-Vesodu-Ezjkgoyjsh Assessment Last Done: 04/13/24 14:18
Discharge Date and Time
Discharge Date/Time: 04/13/24 19:54
[2024-04-13 14:16] VITALS: BP 151/94
--- NOTE | 2024-04-13 16:21 | HPS.HSE ---
Family Physician
-
Family Physician: Lexy Andrews
Chief Complaint
-
abdominal pain
History of Present Illness
Patient is a 63-year-old female with past medical history significant for hypertension, and hypothyroidism who presented to [place] ED for intermittent upper abdominal pain. Patient reports pain has been intermittent for the last 6-7 months and
more intense the last 3 weeks. Pain is described as sharp on the flank radiating to back. Patient did get MRI last year for similar discomfort where stones were seen, she passed a stone in bowel movement and did have improvement for a period of time
following that. She was seen by her primary care provider this morning for the continued intermittent pain who recommended evaluation in the ED. Patient denies any aggravating or alleviating factors. Denies any fever, chills, chest pain, shortness
of breath, nausea, vomiting, constipation, diarrhea or urinary symptoms.
Medical History
Past Medical History
Past Medical History: Reports Other
Additional Past Medical History:
benign hypertension
hypothyroidism
Past Surgical History: Reports Other
Additional Past Surgical History:
thyroidectomy
Laparoscopic lysis adhesions
robotic laparoscopic TLH BSO (Dr. Garcia)
Robotic assisted retropertioneal exploration and Enterolysis
Social History
Tobacco: Non-smoker
Alcohol: Occasional
Drug: None
Personal:
Living: With Family
Employment: Retired
Family History
Family History: Not pertinent
Allergies / Home Medications
Allergies reflects when Allergies were last updated in [facility].
Home Medications with original date entered in [facility]
Allergy/Medication List:
Allergies
Allergy/AdvReac Type Severity Reaction Status Date / Time
pollen extracts Allergy seasonal Verified 04/13/24 13:11
allergies
Sulfa (Sulfonamide Allergy rash/hives Verified 04/13/24 13:11
Antibiotics)
Home Medications
Focus Factor 1 cap PO DAILY 04/13/24
amlodipine 5 mg tablet 5 mg PO DAILY 04/13/24
levothyroxine 100 mcg tablet (Synthroid) 100 mcg PO DAILY 04/13/24
magnesium oxide 400 mg PO DAILY 04/13/24
Review of Systems
-
History Source: Patient
Constitutional: Reports No Symptoms
EENT: Reports No Symptoms
Respiratory: Reports No Symptoms
Cardiac: Reports No Symptoms
Abdomen/GI: Reports Abdominal Pain
: Reports No Symptoms
Musculoskeletal: Reports No Symptoms
Skin: Reports No Symptoms
Neurological: Reports No Symptoms
Endocrine: Reports No Symptoms
Hematologic/Lymphatic: Reports No Symptoms
Psych: Reports No Symptoms
Physical Exam
Vital Signs
Vital Signs
Temp Pulse Resp BP Pulse Ox
97.5 F 96 16 151/94 99
04/13/24 13:06 04/13/24 13:06 04/13/24 13:06 04/13/24 14:16 04/13/24 14:16
Physical Exam
General: Well Developed, Well Nourished, No Apparent Distress, Comfortable, Conversant and Pain
HEENT: NormoCephalic, Moist mucous membranes, Atraumatic, [place] Conjunctivae, Nose Appears Normal and Ears Appear Normal
Respiratory: Clear and Non Labored Respirations
Cardiac: S1/S2 and Regular Rhythm; No Murmur, Rub or Gallop
Breast: Deferred by me
GI: Soft, Non Tender, Tender and Distended; No Organomegaly
Rectal: Deferred by Provider
Genito-urinary: Deferred by me
Musculoskeletal: No Clubbing, No Cyanosis and No Edema
Skin: No Rash
Neuro: Awake, Alert, AO x 3 and Nonfocal/grossly intact
Hematologic/Lymphatic: No Lymphadenopathy
Psych: Calm and Intact Judgment/Insight
Laboratory Results
-
04/13/24 13:16
04/13/24 13:16
Laboratory Results
Total Bilirubin 0.5 mg/dl (0.2-1.3) 04/13/24 13:16
AST 618 U/L (14-36) H* 04/13/24 13:16
ALT 667 U/L (0-35) H* 04/13/24 13:16
Alkaline Phosphatase 191 U/L (38-126) H 04/13/24 13:16
Lipase 91 U/L (23-300) 04/13/24 13:16
Data Reviewed
-
Ultrasound: Report Reviewed by me (Abd: : Evaluation somewhat limited as a result of patient body habitus. Diffuse fatty liver. Cholelithiasis without gallbladder wall thickening or findings to suggest intrahepatic biliary tract dilatation. Mildly
enlarged common bile duct partially obscured most likely by overlying bowel gas, brendon)
Lab Data: Labs Reviewed by me (AST 618, ALT 667, Alk Phos 191)
Impression/Plan
-
IMPRESSION/PLAN:
#abdominal pain
intermittent upper abdominal pain
AST 618, ALT 667, Alk Phos 191
Abd US: Evaluation somewhat limited as a result of patient body habitus.
Diffuse fatty liver.
Cholelithiasis without gallbladder wall thickening or findings to suggest intrahepatic biliary tract dilatation. Mildly enlarged common bile duct partially obscured most likely by overlying bowel gas, cannot exclude choledocholithiasis
or other
intrinsic abnormality.
Abdominal aorta and IVC significantly obscured, most likely by overlying bowel gas.
3.3 cm right renal cyst which may contain internal septations as was seen on prior MRI.
- admit to med/surg
- consult GI
- MRI in morning
#benign hypertension
- continue amlodipine
#hypothyroidism
- continue levothyroxine
Code status: Full Code
DVT Prophylaxis: Lovenox sq
--- NOTE | 2024-04-13 16:48 | W.PN.UPDATE ---
Update Note
Progress Note Update
I saw and examined the patient.
The CORK COMPOUNDER or PA's note was reviewed and I agree with the note.
Comment: 63 years old female came in with frequent episodes of heartburn/abdominal discomfort radiating to the back in the last few weeks. She had similar episode in November and was related to gallbladder disease. She she passed stones in her
stool and her episode subsided. Her primary care doctor change blood pressure medication from losartan to amlodipine to decrease possibility of side effects also. She started to have biliary colic in last a few weeks most recent 2 days ago. She
made herself throw up to help indigestion. No fever or chills but felt hot flashes. In the emergency room, she did not have leukocytosis but noted to have elevated liver enzymes with normal bilirubin and lipase.
PHYSICAL EXAMINATION:
General, not in
HEART: Regular. S1-S2, no murmur
LUNGS: Clear.
ABDOMEN: Soft, right upper quadrant tenderness, nondistended
Musculoskeletal, no joint swelling, no leg edema
Genitourinary, no Cesar
Neurologic, awake alert oriented x 3, she followed commands, nonfocal
Psych, calm and pleasant
Assessment and plan
# Biliary colic, suspect chronic symptomatic cholecystitis
Positive transaminitis
Ultrasound is noted consistent with cholelithiasis
Admit the patient to the hospital, start the patient on empiric IV Rocephin and Flagyl.
No fever or leukocytosis.
Antiemetic medication as needed
IV Dilaudid as needed for discomfort
Liquid diet for tonight and n.p.o. past midnight for further work
MRI of the abdomen
Discussed plan with GI, appreciate input
Likely will need cholecystectomy, consult surgery, appreciate help
# Primary hypertension,
Slightly uncontrolled, blood pressure on admission 169/108, currently 151/94
Possible related to pain and discomfort
will continue amlodipine
Add as needed medication
#Hypothyroidism, continue with Synthroid
Total time spent to see the patient, examine the patient, review data and lab results, discuss treatment plan with patient, GI doctor, ER doctor, and nursing staff around 75 minutes
--- NOTE | 2024-04-13 16:57 | CON.GI ---
Consultation
-
Date/Time Consultation Requested: 04/13/24 4:13pm
Date/Time Consultation Performed: 04/13/24 4:58pm
Requesting Provider: Marques Vallecillo
Performing Provider: Reji Bonds
Reason for Consultation: abd pain, gallstones, elevated LFT
Medical History
Chief Complaint / HPI
Chief Complaint: abd pain, gallstones, elevated LFT
History of Present Illness:
Patient is a 63yo female presenting with episodic upper abd/back pain over the last year. She saw PCP today and was told to come into ER. She had eval with MRI last September that showed gallstones, GB distention, mild GBWT, severe hepatic steatosis,
large 8.5cm R ovarian cyst. She believes she passed gallstones in her stool and then pain subsided. It recurrent around the holidays, one time after she ate a pizza when she was very hungry. She has since had ANGELIA/BSO for the ovarian cyst and path
was benign. The pain is typically post prandial.
Past Medical History
Past Medical History: HTN and Hypothyroidism
Past Surgical History: Gynecological (ANGELIA/BSO) and Other (thyroidectomy)
Social History
Tobacco: Non-Smoker
Alcohol: Occasional
Family History
Family History: Reviewed & Not Pertinent
Allergies / Home Medications
Allergy/AdvReac Type Severity Reaction Status Date / Time
pollen extracts Allergy seasonal Verified 04/13/24 13:11
allergies
Sulfa (Sulfonamide Allergy rash/hives Verified 04/13/24 13:11
Antibiotics)
�Medication �Instructions �Recorded
Focus Factor 1 cap PO DAILY 04/13/24
amlodipine 5 mg tablet 5 mg PO DAILY 04/13/24
levothyroxine 100 mcg tablet 100 mcg PO DAILY 04/13/24
(Synthroid)
magnesium oxide 400 mg PO DAILY 04/13/24
Review of Systems
-
All other systems: A 12 pt ROS was Negative except as stated above in HPI
Vital Signs
Temp Pulse Resp BP Pulse Ox
97.5 F 96 16 151/94 99
04/13/24 13:06 04/13/24 13:06 04/13/24 13:06 04/13/24 14:16 04/13/24 14:16
Physical Exam
Exam
General: Well Developed and Well Nourished
HEENT: Normocephalic and Atraumatic
Respiratory: Non Labored Respirations
GI: Soft, Non Distended and Tender (upper abdominal)
Skin: Warm and Dry
Results
WBC 6.9 10^3/uL (4.8-10.8) 04/13/24 13:16
Hgb 13.1 g/dL (12.0-16.0) 04/13/24 13:16
Hct 38.4 % (37.0-47.0) 04/13/24 13:16
MCV 88.9 fL (81.0-99.0) 04/13/24 13:16
Plt Count 367 10^3/uL (130-400) 04/13/24 13:16
Absolute Neuts (auto) 4.8 10^3/uL (1.4-6.5) 04/13/24 13:16
Sodium 140 mmol/L (135-145) 04/13/24 13:16
Potassium 3.8 mmol/L (3.5-5.1) 04/13/24 13:16
Chloride 100 mmol/L (98-107) 04/13/24 13:16
Carbon Dioxide 30 mmol/L (22-30) 04/13/24 13:16
BUN 7 mg/dl (7-17) 04/13/24 13:16
Creatinine 0.8 mg/dL (0.6-1.0) 04/13/24 13:16
Calcium 9.3 mg/dl (8.4-10.2) 04/13/24 13:16
Total Bilirubin 0.5 mg/dl (0.2-1.3) 04/13/24 13:16
AST 618 U/L (14-36) H* 04/13/24 13:16
ALT 667 U/L (0-35) H* 04/13/24 13:16
Alkaline Phosphatase 191 U/L (38-126) H 04/13/24 13:16
Lipase 91 U/L (23-300) 04/13/24 13:16
Diagnostic Image Results:
Prior GI Procedures:
EGD:
Colonoscopy:
Assessment / Plan
-
Summary: 63yo female presents with episodic post prandial upper abd/back pain. Had MRI last September- gallstones, mild GBWT, severe fatty liver, large 8.5cm R ovarian cyst- since had ANGELIA/BSO, benign. Sx resolve and then recurred over holidays. US in
ER shows cholelithiasis, CBD 10mm, fatty liver. AST 618, ALT 667, TB 0.5, AP 191
Impression:
Upper abd pain
Elevated LFT
Gallstones
Fatty liver
Recommendations:
MRI/MRCP ordered to rule out CBD stone
If positive, ERCP
If negative, surgery consult for cholecystectomy
Trend LFTs
Agree with abx. OK for clears
-
-
Thank you for consultation and allowing me to participate in the patient's care. Please call the classification and treatment director GI physician during the after hours with any questions or concerns.
[2024-04-13 19:45] VITALS: BP 151/82; BMI 36.3
--- NOTE | 2024-04-13 19:45 | PTCARENOTE ---
Patient arrived on unit from ED via wheelchair. Patient ambulated from wheelchair to bed. A&Ox3. Oriented to unit. Call light within reach. Care ongoing.
[2024-04-13] MEDS: STERILE WATER FOR INJECTION 10 ML IV (20:16)
[2024-04-13] MEDS: ROCEPHIN 1000 MG IV (20:16)
[2024-04-13] MEDS: FLAGYL 500 MG 100 IV (20:17)
[2024-04-13 23:20] VITALS: BP 119/70
[2024-04-14] MEDS: SYNTHROID 100 MCG PO (05:01)
[2024-04-14] MEDS: FLAGYL 500 MG 100 IV ×3 (05:01→20:46)
[2024-04-14 06:58] LABS: Hematocrit 35.7 % (37.0-47.0); Mean Corp Hgb Conc. 33.6 g/dL (33.0-37.0); Mean Corpuscular Hgb 30.1 pg (27.0-31.0); Mean Corpuscular Volume 89.5 fL (81.0-99.0); Mean Platelet Volume 8.3 fL (7.4-10.4); Platelet Count 330 10^3/uL (130-400); Red Blood Cell Count 3.99 10^6/uL (4.20-5.40); Red Cell Dist. Width 13.2 % (11.5-14.5); White Blood Cell Count 6.2 10^3/uL (4.8-10.8)
[2024-04-14 07:36] VITALS: BP 131/72
[2024-04-14 07:37] LABS: ALT (SGPT) 555 U/L (0-35); AST (SGOT) 351 U/L (14-36); Albumin 3.6 g/dl (3.5-5.0); Alkaline Phosphatase 172 U/L (38-126); Blood Urea Nitrogen 6 mg/dl (7-17); Calcium 8.6 mg/dl (8.4-10.2); Carbon Dioxide 26 mmol/L (22-30); Chloride 102 mmol/L (98-107); Estimated Creatinine Clearance 88 ml/min; Glucose 97 mg/dl (70-99); Sodium 138 mmol/L (135-145); Total Bilirubin 0.6 mg/dl (0.2-1.3); Total Protein 6.1 g/dl (6.3-8.2); eGFR > 60.00
[2024-04-14] MEDS: NORVASC 5 MG PO (07:58)
[2024-04-14] MEDS: MAG-TAB SR 84 MG PO (07:59)
[2024-04-14] MEDS: D5/0.9% SODIUM CHLORIDE 1000 IV ×2 (08:26→17:32)
--- NOTE | 2024-04-14 11:31 | CON.GS ---
Medical History
-
Chief Complaint: Abdominal pain
History of Present Illness:
Patient is a 63 yo F with a PMH of obesity, hypothyroidism, HTN, s/p , s/p robotic hysterectomy, oophorectomy, and JENAE in 10/[address] Griffin and Radha who presents with epigastric and RUQ abdominal pain. Ms. Pete states that
she has had multiple interim attacks over the years. Her first attack was approximately 8 years ago. Symptoms improved at that time with changing to a gluten-free diet. She then subsequently had an attack in August. Over the past month she has had
intermittent attacks of pain. Symptoms occur with oral intake. Symptoms typically resolve with hours. Pain radiates to the back. Prior episodes were associated with nausea, vomiting, fevers, and chills. She presented to her PCP during her most
recent attack who prompted her to present to the ED. She notes pale stools and tea-colored urine patient denies any jaundice. No family history of cholecystectomy.
Past Medical History
Past Medical History: HTN, Hypothyroidism and Other (Obesity)
Past Surgical History: and Gynecological (Hysterectomy)
Social History
Tobacco: Non-Smoker
Alcohol: None
Drug: None
Employment: Employed (Realtor)
Family History
Family History: Reviewed & Noncontributory
Allergies / Home Medications
Allergy/AdvReac Type Severity Reaction Status Date / Time
pollen extracts Allergy seasonal Verified 04/13/24 13:11
allergies
Sulfa (Sulfonamide Allergy rash/hives Verified 04/13/24 13:11
Antibiotics)
�Medication �Instructions �Recorded �Confirmed �Type
Focus Factor 1 cap PO DAILY 04/13/24 04/13/24 History
amlodipine 5 mg tablet 5 mg PO DAILY 04/13/24 04/13/24 History
levothyroxine 100 mcg tablet 100 mcg PO DAILY 04/13/24 04/13/24 History
(Synthroid)
magnesium oxide 400 mg PO DAILY 04/13/24 04/13/24 History
Review of Systems
-
A 10 point review of systems was completed, and was negative except as per HPI.
Physical Exam
Vital Signs
Temp Pulse Resp BP Pulse Ox
98.1 F 79 16 131/72 100
04/14/24 07:36 04/14/24 07:36 04/14/24 07:36 04/14/24 07:58 04/14/24 09:06
04/13/24 04/14/24 04/15/24
06:59 06:59 06:59
Actual Weight 89.925 kg
Body Mass Index (BMI) 36.3
Lab Results
04/14/24 06:15
04/14/24 06:15
WBC 6.2 10^3/uL (4.8-10.8) 04/14/24 06:15
Hgb 12.0 g/dL (12.0-16.0) 04/14/24 06:15
Hct 35.7 % (37.0-47.0) L 04/14/24 06:15
Plt Count 330 10^3/uL (130-400) 04/14/24 06:15
Abs Immat Gran (auto) 0.0 10^3/uL (0-0.05) 04/13/24 13:16
Neutrophils % 69.9 % (42.2-75.2) 04/13/24 13:16
Physical Exam
General: Well Developed, Well Nourished and No Apparent Distress
HEENT: Normocephalic and Anicteric
Respiratory: Non Labored Respirations
Cardiac: Regular Rhythm
GI: Soft, Non Distended, Tender (Mild epigastric and RUQ, negative Rankin's signs), Obese and Other (Nonperitoneal)
Musculoskeletal: No Edema
Skin: Warm and Dry
Neuro: Nonfocal/Grossly Intact
Data Reviewed
-
Ultrasound: Image Personally Visualized and interpreted and Report Reviewed by me
MRI: Image Personally Visualized and interpreted and Report Reviewed by me
Labs: Labs Reviewed by me
Assessment / Plan
-
Patient is a 63 yo F p/w choledocholithiasis in the setting of prior attacks of biliary colic
The natural history pathophysiology of biliary and stone disease was discussed. Workup thus far including ultrasound, MRI, labs were reviewed. GI consult noted. MRI notable for choledocholithiasis. Role of cholecystectomy in preventing future
episodes of biliary colic, cholecystitis, or choledocholithiasis was reviewed. Commend cholecystectomy during this admission. Timing TBD. All questions answered.
-- GI consult noted, MRI with choledocholithiasis, timing of ERCP pending
-- Laparoscopic cholecystectomy timing TBD
-- Abx: Ceftriaxone and Flagyl
--- NOTE | 2024-04-14 11:35 | W.PN.HOSP.TC ---
Today's Communication/Plan
-
f/w GI & surgery recommendations
Keep IV Abx for now
Add IV PPI
Add PRN IV Hydralazine
Assessment / Plan
Assessment / Plan
PHYSICAL EXAMINATION:
General, not in
HEART: Regular. S1-S2, no murmur
LUNGS: Clear.
ABDOMEN: Soft, right upper quadrant tenderness, nondistended
Musculoskeletal, no joint swelling, no leg edema
Genitourinary, no Cesar
Neurologic, awake alert oriented x 3, she followed commands, nonfocal
Psych, calm and pleasant
# Biliary colic, suspect chronic symptomatic cholecystitis
Mild acute cholangitis
Positive transaminitis
Ultrasound is noted consistent with cholelithiasis
MRI c/w CBD stone
c/w empiric IV Rocephin and Flagyl.
No fever or leukocytosis.
Antiemetic medication as needed
IV Dilaudid as needed for discomfort
IVF while NPO
Add IV PPI
Consulted surgery & GI, appreciate input
# hepatic steatosis, will benefit from weight loss and GI follow up.
# Primary hypertension,
continue amlodipine
Add as needed medication, IV hydralazine
#Hypothyroidism, continue with Synthroid
Total time spent to see the patient, examine the patient, review data and lab results, discuss treatment plan with patient, and nursing staff around 55 minutes
Anticipated Discharge: > 48 hours
Subjective/Interval History
-
Date of Service: April 14, 2024
Less abd discomfort after ABx
No nausea
No fevers
Objective Data
-
Labs:
Laboratory Results
04/14/24
06:15
WBC 6.2
Hgb 12.0
Hct 35.7 L
Plt Count 330
Sodium 138
Potassium 4.0
Chloride 102
Carbon Dioxide 26
BUN 6 L
Creatinine 0.7
Glucose 97
Calcium 8.6
Total Bilirubin 0.6
AST 351 H
ALT 555 H*
Alkaline Phosphatase 172 H
Vital Signs:
Vital Signs
Temp Pulse Resp BP Pulse Ox
98.1 F 79 16 131/72 100
04/14/24 07:36 04/14/24 07:36 04/14/24 07:36 04/14/24 07:58 04/14/24 09:06
[2024-04-14] MEDS: PROTONIX IV 40 MG IV (14:50)
[2024-04-14] MEDS: NSS (PRESERVATIVE FREE) 10 ML IV (14:50)
--- NOTE | 2024-04-14 15:41 | W.PN.GI.CBS2 ---
Today's Communication / Plan
-
ERCP tomorrow
Liquid diet today. N.p.o. after midnight
Assessment / Plan
-
Summary: 63yo female presents with episodic post prandial upper abd/back pain. Had MRI last September- gallstones, mild GBWT, severe fatty liver, large 8.5cm R ovarian cyst- since had ANGELIA/BSO, benign. Sx resolve and then recurred over holidays. US in
ER shows cholelithiasis, CBD 10mm, fatty liver. AST 618, ALT 667, TB 0.5, AP 191
Impression:
Upper abd pain
Elevated LFT
Gallstones
Fatty liver
MRI abd 04/14
IMPRESSION:
1. MRCP evidence for choledocholithiasis with a 0.5 cm gallstone in the distal common bile duct. Mild intrahepatic and extrahepatic bile duct dilatation.
2. Cholelithiasis.
3. Increased diffuse gallbladder wall thickening, but no significant pericholecystic edema/fluid.
4. Severe hepatic steatosis.
Recommendations:
Repeat liver test downtrending. No evidence of cholangitis.
Patient is agreeable for ERCP tomorrow
Okay for clear liquid diet today. N.p.o. after midnight
Follow-up with surgery for cholecystectomy
Total Time Spent with Patient (in minutes): 35
Subjective
Subjective
Date of Service: April 14, 2024
Feeling better. Denies any nausea or vomiting.
Objective
Data Reviewed
Laboratory Data:
Laboratory Results
04/14/24 06:15
04/14/24 06:15
Laboratory Results
Total Bilirubin 0.6 mg/dl (0.2-1.3) 04/14/24 06:15
AST 351 U/L (14-36) H 04/14/24 06:15
ALT 555 U/L (0-35) H* 04/14/24 06:15
Alkaline Phosphatase 172 U/L (38-126) H 04/14/24 06:15
Lipase 91 U/L (23-300) 04/13/24 13:16
Vital Signs and I&O:
Vital Signs
Temp Pulse Resp BP Pulse Ox
98.1 F 79 16 131/72 100
04/14/24 07:36 04/14/24 07:36 04/14/24 07:36 04/14/24 07:58 04/14/24 09:06
Physical Exam
Physical Exam
GI: Soft, Non Distended and Non Tender
[2024-04-14 15:48] VITALS: BP 128/77
[2024-04-14] MEDS: ROCEPHIN 1000 MG IV (20:41)
[2024-04-14] MEDS: STERILE WATER FOR INJECTION 10 ML IV (20:41)
[2024-04-14 23:30] VITALS: BP 111/66
[2024-04-15] VITALS (9 sets, daily range): BP systolic 100–165; BP diastolic 55–100
--- NOTE | 2024-04-15 02:11 | DOWNTIME ---
There was a [employer] Downtime on 04/15/2024 from 0100 to 04/15/2023 at 0205 . Downtime documentation of patient's care, including medication administrations, has been reconciled in the electronic record per guidelines. Refer to the
patient's paper chart under the miscellaneous tab to see printed paper medication records and downtime forms.
[2024-04-15] MEDS: FLAGYL 500 MG 100 IV ×3 (04:32→20:51)
[2024-04-15] MEDS: D5/0.9% SODIUM CHLORIDE 1000 IV ×2 (04:32→23:15)
[2024-04-15] MEDS: SYNTHROID PO (05:50)
[2024-04-15] MEDS: PROTONIX IV 40 MG IV (08:03)
[2024-04-15] MEDS: NORVASC PO (08:03)
[2024-04-15] MEDS: MAG-TAB SR PO (08:03)
[2024-04-15] MEDS: NSS (PRESERVATIVE FREE) 10 ML IV (08:03)
--- NOTE | 2024-04-15 09:46 | W.PN.HOSP.TC ---
Today's Communication/Plan
-
ERCP today
Await surgery input for Cholecystectomy
Appreciate surgery and GI help
She is NPO now
On IV Abx
Assessment / Plan
Assessment / Plan
PHYSICAL EXAMINATION:
General, not in
HEART: Regular. S1-S2, no murmur
LUNGS: Clear.
ABDOMEN: Soft, right upper quadrant tenderness, nondistended
Musculoskeletal, no joint swelling, no leg edema
Genitourinary, no Cesar
Neurologic, awake alert oriented x 3, she followed commands, nonfocal
Psych, calm and pleasant
# Biliary colic, suspect chronic symptomatic cholecystitis
Mild acute cholangitis
Positive transaminitis
Ultrasound is noted consistent with cholelithiasis
MRI c/w CBD stone, for ERCP today, she is NPO
c/w empiric IV Rocephin and Flagyl.
No fever or leukocytosis.
Antiemetic medication as needed
IV Dilaudid as needed for discomfort
IVF while NPO
Added IV PPI
Consulted surgery & GI, appreciate input
# hepatic steatosis, will benefit from weight loss and GI follow up.
# Primary hypertension,
continue amlodipine
Add as needed medication, IV hydralazine
#Hypothyroidism, continue with Synthroid
Total time spent to see the patient, examine the patient, review data and lab results, discuss treatment plan with patient, and nursing staff around 57 minutes
Anticipated Discharge: > 48 hours
Subjective/Interval History
-
Date of Service: April 15, 2024
Right UQ abdominal discomfort
No nausea
No fevers
NPO this morning
Objective Data
-
Vital Signs:
Vital Signs
Temp Pulse Resp BP Pulse Ox
98.1 F 76 16 128/64 97
04/15/24 07:31 04/15/24 07:31 04/15/24 07:31 04/15/24 07:31 04/15/24 08:00
I&O
04/14/24 04/15/24 04/16/24
06:59 06:59 06:59
Intake Total 0 / 216
Balance 2159 / 2159
--- NOTE | 2024-04-15 10:34 | CM ---
Patient seen bedside.
IA compelled.
patient lives with spouse in a 2 story home.
Patient independent prior to admission without assistive devices.
Patient works and drives.
Patient had VN in remote past, no needs at this time.
PCP: Dr Andrews
Pharmacy: [facility]
Plan: home no needs anticipated.
[2024-04-15 10:40] LABS: ALT (SGPT) 416 U/L (0-35); AST (SGOT) 193 U/L (14-36); Albumin 3.4 g/dl (3.5-5.0); Alkaline Phosphatase 176 U/L (38-126); Direct Bilirubin 0.2 mg/dl (0.0-0.4); Total Bilirubin 0.4 mg/dl (0.2-1.3); Total Protein 6.1 g/dl (6.3-8.2)
--- NOTE | 2024-04-15 10:51 | W.PN.GS2 ---
Today's Communication / Plan
-
ERCP
Assessment / Plan
-
63F with choledocholithiasis
For ERCP today with GI
She is interested in [facility]Y this admit, briefly discussed expected course
OK for CLD post-procedure, NPO @ [facility]
All other care as per primary team
Subjective Data
-
Date of Service: April 15, 2024
AFVSS, feeling improved, denies pain, denies n/v
Objective Data
-
Intake and Output
04/14/24 04/15/24 04/16/24
06:59 06:59 06:59
Intake Total 2160 / 2160
Balance 2160 / 2160
Intake:
Oral fluids 960 / 960
IV fluids (Total) 1200 / 1200
Other:
Number of approximated MODERATE 1 2
amounts of urine
Vital Signs
Temp Pulse Resp BP Pulse Ox
98.1 F 76 16 128/64 97
04/15/24 07:31 04/15/24 07:31 04/15/24 07:31 04/15/24 07:31 04/15/24 08:00
Lab Results
04/14/24 06:15
04/14/24 06:15
Calcium 8.6 mg/dl (8.4-10.2) 04/14/24 06:15
Total Bilirubin 0.4 mg/dl (0.2-1.3) 04/15/24 10:17
Direct Bilirubin 0.2 mg/dl (0.0-0.4) 04/15/24 10:17
AST 193 U/L (14-36) H 04/15/24 10:17
ALT 416 U/L (0-35) H 04/15/24 10:17
Alkaline Phosphatase 176 U/L (38-126) H 04/15/24 10:17
Total Protein 6.1 g/dl (6.3-8.2) L 04/15/24 10:17
Albumin 3.4 g/dl (3.5-5.0) L 04/15/24 10:17
Physical Exam
-
Gen: NAd
Abd: soft, nt, obese
Patient has a bonilla catheter: No
Patient has a central line: No
[2024-04-15] MEDS: D5/0.9% SODIUM CHLORIDE IV (14:11)
[2024-04-15] MEDS: ZOFRAN 4 MG IV (14:12)
[2024-04-15] MEDS: STERILE WATER FOR INJECTION 10 ML IV (20:51)
[2024-04-15] MEDS: ROCEPHIN 1000 MG IV (20:51)
[2024-04-16] VITALS (12 sets, daily range): BP systolic 120–142; BP diastolic 64–80
[2024-04-16] MEDS: FLAGYL 500 MG 100 IV ×3 (04:59→20:51)
[2024-04-16] MEDS: SYNTHROID 100 MCG PO (05:07)
[2024-04-16 07:32] LABS: % Basophils 0.1 % (0-2); % Immature Granulocytes 0.4 % (0-0.5); % Lymphocytes 8.9 % (20.5-51.1); % Monocytes 4.3 % (1.7-9.3); % Neutrophils 86.3 % (42.2-75.2); Absolute Lymphocytes 0.9 10^3/uL (1.2-3.4); Absolute Monocytes 0.4 10^3/uL (0.1-0.6); Absolute Neutrophils 8.6 10^3/uL (1.4-6.5); Hematocrit 36.1 % (37.0-47.0); Hemoglobin 12.2 g/dL (12.0-16.0); Mean Corp Hgb Conc. 33.8 g/dL (33.0-37.0); Mean Corpuscular Hgb 30.3 pg (27.0-31.0); Mean Corpuscular Volume 89.6 fL (81.0-99.0); Mean Platelet Volume 8.4 fL (7.4-10.4); Nucleated Red Blood Cells % 0 %; Platelet Count 364 10^3/uL (130-400); Red Blood Cell Count 4.03 10^6/uL (4.20-5.40); Red Cell Dist. Width 13.1 % (11.5-14.5)
[2024-04-16 07:43] LABS: ALT (SGPT) 311 U/L (0-35); AST (SGOT) 73 U/L (14-36); Albumin 3.4 g/dl (3.5-5.0); Alkaline Phosphatase 158 U/L (38-126); Direct Bilirubin 0.1 mg/dl (0.0-0.4); Total Bilirubin 0.2 mg/dl (0.2-1.3); Total Protein 6.1 g/dl (6.3-8.2)
[2024-04-16] MEDS: PROTONIX IV 40 MG IV (07:53)
[2024-04-16] MEDS: NSS (PRESERVATIVE FREE) 10 ML IV (07:53)
[2024-04-16] MEDS: MAG-TAB SR 84 MG PO (07:53)
[2024-04-16] MEDS: NORVASC 5 MG PO (07:53)
--- NOTE | 2024-04-16 10:00 | W.PN.HOSP.TC ---
Today's Communication/Plan
-
NPO for surgery today
c/w IVF & IV Abx
Assessment / Plan
Assessment / Plan
PHYSICAL EXAMINATION:
General, not in
HEART: Regular. S1-S2, no murmur
LUNGS: Clear.
ABDOMEN: Soft, right upper quadrant tenderness, nondistended
Musculoskeletal, no joint swelling, no leg edema
Genitourinary, no Cesar
Neurologic, awake alert oriented x 3, she followed commands, nonfocal
Psych, calm and pleasant
# Biliary colic, suspect chronic symptomatic cholecystitis
Mild acute cholangitis
Positive transaminitis
Ultrasound is noted consistent with cholelithiasis
MRI c/w CBD stone,
S/P ERCP 04/15 : complete removal was accomplished by biliary sphincterotomy and balloon extraction.
c/w empiric IV Rocephin and Flagyl.
No fever or leukocytosis.
Antiemetic medication as needed
IV Dilaudid as needed for discomfort
IVF while NPO , surgery today
Added IV PPI
Liver function test keeps improving. Normal bilirubin.
Consulted surgery & GI, appreciate input
# hepatic steatosis, will benefit from weight loss and GI follow up.
# Primary hypertension,
continue amlodipine
Add as needed medication, IV hydralazine
#Hypothyroidism, continue with Synthroid
Total time spent to see the patient, examine the patient, review data and lab results, discuss treatment plan with patient, GI doctor and nursing staff around 55 minutes
Anticipated Discharge: 24 - 48 hours
Subjective/Interval History
-
Date of Service: April 16, 2024
Mild RUQ discomfort
No nausea or vomiting
No fevers
Objective Data
-
Labs:
Laboratory Results
04/16/24
06:33
WBC 10.0
Hgb 12.2
Hct 36.1 L
Plt Count 364
Total Bilirubin 0.2
AST 73 H
ALT 311 H
Alkaline Phosphatase 158 H
Vital Signs:
Vital Signs
Temp Pulse Resp BP Pulse Ox
97.5 F 74 16 127/75 99
04/16/24 07:59 04/16/24 07:59 04/16/24 07:59 04/16/24 07:59 04/16/24 07:59
I&O
04/15/24 04/16/24 04/17/24
06:59 06:59 06:59
Intake Total 2160 / 2160 2730 / 2730
Balance 2160 / 2160 2730 / 2730
--- NOTE | 2024-04-16 10:54 | W.PN.SURGUPD ---
Surgical Update
Surgical Update
Patient seen in follow-up. Feels well after undergoing ERCP yesterday.
Mild lingering discomfort in the right upper abdomen. No nausea. Presenting symptoms otherwise resolved.
AFVSS
NAD AAOx3
ERCP with biliary sphincterotomy and balloon extraction performed 02/13/2025
MRI personally reviewed gallbladder filled with stones.
Reviewed with patient indications for cholecystectomy which she is in agreement with proceeding with surgery.
Laparoscopic cholecystectomy with cholangiogram was reviewed in detail including operative technique and alternative management options. The potential benefits and risks of the procedure were reviewed in detail, including but not limited to
infectious or wound healing complications, bleeding, bile leak, injury to biliary tree, iatrogenic injury to surrounding viscera and post cholecystectomy syndrome. Reviewed the typical postoperative recovery.
Any of the patient's concerns or questions were fully addressed and informed consent was obtained.
Continue current care awaiting OR availability today as add-on to the schedule.
[2024-04-16] MEDS: D5/0.9% SODIUM CHLORIDE 1000 IV ×2 (11:21→16:16)
--- NOTE | 2024-04-16 11:50 | W.PN.GI.CBS2 ---
Today's Communication / Plan
-
lap ash today
Assessment / Plan
-
Summary: 63yo female presents with episodic post prandial upper abd/back pain. Had MRI last September- gallstones, mild GBWT, severe fatty liver, large 8.5cm R ovarian cyst- since had ANGELIA/BSO, benign. Sx resolve and then recurred over holidays. US in
ER shows cholelithiasis, CBD 10mm, fatty liver. AST 618, ALT 667, TB 0.5, AP 191
Impression:
Upper abd pain
Elevated LFT
Gallstones
Fatty liver
MRI abd 04/14
IMPRESSION:
1. MRCP evidence for choledocholithiasis with a 0.5 cm gallstone in the distal common bile duct. Mild intrahepatic and extrahepatic bile duct dilatation.
2. Cholelithiasis.
3. Increased diffuse gallbladder wall thickening, but no significant pericholecystic edema/fluid.
4. Severe hepatic steatosis.
ERCP 04/15
Impression: - A filling defect consistent with a stone was seen on
the cholangiogram.
- Choledocholithiasis was found. Complete removal was
accomplished by biliary sphincterotomy and balloon
extraction.
Recommendations:
Repeat liver test downtrending. Awaiting cholecystectomy today with surgery
Continue further recommendation as per surgery
Will sign off. Please call us back if any questions
Patient would like to follow-up with GI as outpatient. Message sent to office
Total Time Spent with Patient (in minutes): 35
Subjective
Subjective
Date of Service: April 16, 2024
Denies any abdominal pain/nausea/vomiting.
Objective
Data Reviewed
Laboratory Data:
Laboratory Results
04/16/24 06:33
04/14/24 06:15
Laboratory Results
Total Bilirubin 0.2 mg/dl (0.2-1.3) 04/16/24 06:33
AST 73 U/L (14-36) H 04/16/24 06:33
ALT 311 U/L (0-35) H 04/16/24 06:33
Alkaline Phosphatase 158 U/L (38-126) H 04/16/24 06:33
Lipase 91 U/L (23-300) 04/13/24 13:16
Vital Signs and I&O:
Vital Signs
Temp Pulse Resp BP Pulse Ox
97.5 F 74 16 127/75 99
04/16/24 07:59 04/16/24 07:59 04/16/24 07:59 04/16/24 07:59 04/16/24 07:59
I&O
04/15/24 04/16/24 04/17/24
06:59 06:59 06:59
Intake Total 2160 / 2160 2730 / 2730
Balance 2160 / 2160 2730 / 2730
Physical Exam
Physical Exam
GI: Soft, Non Distended and Non Tender
--- NOTE | 2024-04-16 15:11 | W.IMMPOSTOP ---
Addendum entered and electronically signed by Timmy Hill MD 04/16/24 15:57:
The assistance of Zahra Deutsch PA-c was required due to the complexity of the procedure. During the procedure Zahra Deutsch PA-c assisted with retraction for exposure, managing the laparoscopic for visualization, and closure of the incision sites
with myself
#[id number]
Original Note:
Surgical Immed Post Op Note
-
Primary Surgeon: Timmy Hill MD
Assisting Surgeon: Zahra Deutsch PA-C
Pre-op Diagnosis: Cholelithiasis, choledocholithiasis
Post-op Diagnosis: Acute on chronic calculus cholecystitis; choledocholithiasis
Procedure Performed: Laparoscopic cholecystectomy with intraoperative cholangiogram
Anesthesia Type: GETA +0.25% Marcaine
Specimen / Cultures: Gallbladder/none
Estimated Blood Loss: 30 mL
Complications: None immediate
Operative Findings: Tensely distended gallbladder filled with stones. Both acute and chronic omental adhesions and inflammation of the gallbladder. Large/dilated cystic duct with multiple stones within cystic duct. 2 stones extracted at cystic
ductotomy. 2 stones likely proceeded distally into common bile duct which were visualized with intraoperative cholangiogram. Cystic duct divided with Endo JAIDEN purple 30 stapler. Gallbladder removed off liver bed otherwise intact except at site of
ductotomy for cholangiogram. Extracted at epigastric port site. Surgi-Deandre utilized in region of cystic triangle for raw surface area but no significant bleeding/oozing.
Plan: Discussed with Dr. Yepez. gastroenterology service. Patient will be scheduled for subsequent ERCP stone extraction likely tomorrow 04/17/2024
Clear liquid diet initially postoperatively, n.p.o. after night for ERCP
Continue current antibiotics until ductal system cleared.
[2024-04-16] MEDS: DILAUDID 0.25 MG IV ×2 (15:25→16:13)
[2024-04-16] MEDS: ZOFRAN 4 MG IV (15:40)
[2024-04-16] MEDS: TORADOL 10 MG IV (15:54)
--- NOTE | 2024-04-16 16:47 | PTCARENOTE ---
1637 Pt received from PACU via bed AAOX3. Personal items and call light within reach. Pt denies pain at this time. VSS. All needs met.
[2024-04-16] MEDS: ROCEPHIN 1000 MG IV (20:51)
[2024-04-16] MEDS: STERILE WATER FOR INJECTION 10 ML IV (20:51)
[2024-04-17 03:00] VITALS: BP 144/81
[2024-04-17] MEDS: D5/0.9% SODIUM CHLORIDE 1000 IV (03:19)
[2024-04-17] MEDS: FLAGYL 500 MG 100 IV ×3 (03:20→21:08)
[2024-04-17] MEDS: TORADOL 10 MG IV (03:27)
[2024-04-17] MEDS: SYNTHROID 100 MCG PO (06:28)
[2024-04-17 06:57] VITALS: BP 109/71
[2024-04-17] MEDS: MAG-TAB SR 84 MG PO (07:39)
[2024-04-17] MEDS: NORVASC 5 MG PO (07:39)
[2024-04-17] MEDS: PROTONIX IV 40 MG IV (07:40)
[2024-04-17] MEDS: NSS (PRESERVATIVE FREE) 10 ML IV (07:40)
--- NOTE | 2024-04-17 10:15 | W.PN.HOSP.TC ---
Today's Communication/Plan
-
.
Assessment / Plan
Assessment / Plan
PHYSICAL EXAMINATION:
General, not in
HEART: Regular. S1-S2, no murmur
LUNGS: Clear.
ABDOMEN: Soft, right upper quadrant tenderness, nondistended
Musculoskeletal, no joint swelling, no leg edema
Genitourinary, no Cesar
Neurologic, awake alert oriented x 3, she followed commands, nonfocal
Psych, calm and pleasant
# Biliary colic, Acute on chronic calculus cholecystitis; choledocholithiasis
Mild acute cholangitis
Positive transaminitis
Ultrasound is noted consistent with cholelithiasis
MRI c/w CBD stone,
S/P ERCP 04/15 : complete removal was accomplished by biliary sphincterotomy and balloon extraction.
S/P Laparoscopic cholecystectomy with intraoperative cholangiogram by Dr Hill on 04/16 with finding of choledocholithiasis
Plan to repeat ERCP 04/17
c/w empiric IV Rocephin and Flagyl.
No fever or leukocytosis.
Antiemetic medication as needed
IV Dilaudid as needed for discomfort
IVF while NPO , ERCP
Added IV PPI
Liver function test keeps improving. Normal bilirubin.
Consulted surgery & GI, appreciate input
# hepatic steatosis, will benefit from weight loss and GI follow up.
# Primary hypertension,
continue amlodipine
Add as needed medication, IV hydralazine
#Hypothyroidism, continue with Synthroid
Total time spent to see the patient, examine the patient, review data and lab results, discuss treatment plan with patient and nursing staff around 55 minutes
Anticipated Discharge: Within 24 hours
Subjective/Interval History
-
Date of Service: April 17, 2024
less discomfort
No fevers
No chest pains
Objective Data
-
Vital Signs:
Vital Signs
Temp Pulse Resp BP Pulse Ox
97.7 F 84 18 109/71 97
04/17/24 06:57 04/17/24 06:57 04/17/24 06:57 04/17/24 06:57 04/17/24 06:57
I&O
04/16/24 04/17/24 04/18/24
06:59 06:59 06:59
Intake Total 2730 / 2730 990 / 990 480 / 480
Balance 2730 / 2730 990 / 990 480 / 480
[2024-04-17 10:24] VITALS: BP 102/63; BP 108/71
--- NOTE | 2024-04-17 10:58 | W.PN.GS2 ---
Addendum entered and electronically signed by Sherman Fiore MD 04/17/24 16:07:
I saw and examined the patient.
The Public Affairs Specialist's note was reviewed and I agree with the note.
Comment: comfotable, approp ttp and incisions cdi, for ERCP today; if successful and no post-procedure issues would be OK for DC from surgery standpoint. Pls call with ?s
Original Note:
Today's Communication / Plan
-
ERCP
Assessment / Plan
-
63F with acute on chronic calculous cholecystitis with choledocholithiasis
ERCP on 04/15/24 for removal of stones
POD #1 Lap ash with IOC demonstrating filling defect consistent with stones
For ERCP today with GI
AFVSS
Doing well from surgical standpoint
Plan:
Dietary advancement as per GI
Anticipate home tomorrow
Analgesics prn
Medical management as per primary team
Subjective Data
-
Date of Service: April 17, 2024
Patient seen and examined at bedside with Dr. Fiore prior to her ERCP this morning. Incisional soreness presence but also epigastric discomfort into her back. Denies n/v.
Objective Data
-
Intake and Output
04/16/24 04/17/24 04/18/24
06:59 06:59 06:59
Intake Total 2730 / 2730 990 / 990 580 / 580
Balance 2730 / 2730 990 / 990 580 / 580
Intake:
Oral fluids 1380 / 1380 840 / 840 480 / 480
IV fluids (Total) 1150 / 1150 150 / 150 100 / 100
LR 250 / 250 100 / 100
normosol 150 / 150
IV piggybacks 200 / 200
Other:
Number of approximated MODERATE 1 4 2
amounts of urine
Number of approximated LARGE 2
amounts of urine
Vital Signs
Temp Pulse Resp BP Pulse Ox
98.6 F 102 15 102/63 94
04/17/24 10:52 04/17/24 10:30 04/17/24 10:30 04/17/24 10:24 04/17/24 10:52
Lab Results
04/16/24 06:33
04/14/24 06:15
Calcium 8.6 mg/dl (8.4-10.2) 04/14/24 06:15
Total Bilirubin 0.2 mg/dl (0.2-1.3) 04/16/24 06:33
Direct Bilirubin 0.1 mg/dl (0.0-0.4) 04/16/24 06:33
AST 73 U/L (14-36) H 04/16/24 06:33
ALT 311 U/L (0-35) H 04/16/24 06:33
Alkaline Phosphatase 158 U/L (38-126) H 04/16/24 06:33
Total Protein 6.1 g/dl (6.3-8.2) L 04/16/24 06:33
Albumin 3.4 g/dl (3.5-5.0) L 04/16/24 06:33
Physical Exam
-
Gen: NAd
Abd: soft, minimal incisional tenderness, nd
Incisions with intact glue, no erythema, well approximated
Patient has a bonilla catheter: No
Patient has a central line: No
[2024-04-17 11:09] VITALS: BP 163/91
--- NOTE | 2024-04-17 12:17 | CM ---
Patient appears at baseline per activity notes. She is ambulating by herself in the room and hallways. Will return home when cleared.
Plan: Case management will continue to follow and assist with discharge planning. Should be home no needs.
[2024-04-17 15:10] VITALS: BP 121/74
[2024-04-17] MEDS: ROCEPHIN 1000 MG IV (21:07)
[2024-04-17] MEDS: STERILE WATER FOR INJECTION 10 ML IV (21:07)
[2024-04-17 23:05] VITALS: BP 121/62
[2024-04-18] MEDS: FLAGYL 500 MG 100 IV (04:30)
[2024-04-18] MEDS: SYNTHROID 100 MCG PO (06:02)
[2024-04-18 08:01] VITALS: BP 129/78
[2024-04-18] MEDS: NORVASC 5 MG PO (08:28)
[2024-04-18] MEDS: PROTONIX IV 40 MG IV (08:28)
[2024-04-18] MEDS: NSS (PRESERVATIVE FREE) 10 ML IV (08:28)
[2024-04-18] MEDS: MAG-TAB SR 84 MG PO (08:28)
[2024-04-18 09:13] LABS: ALT (SGPT) 192 U/L (0-35); AST (SGOT) 42 U/L (14-36); Albumin 3.3 g/dl (3.5-5.0); Alkaline Phosphatase 121 U/L (38-126); Blood Urea Nitrogen 7 mg/dl (7-17); Calcium 8.8 mg/dl (8.4-10.2); Carbon Dioxide 28 mmol/L (22-30); Chloride 102 mmol/L (98-107); Estimated Creatinine Clearance 88 ml/min; Glucose 107 mg/dl (70-99); Potassium 3.7 mmol/L (3.5-5.1); Sodium 137 mmol/L (135-145); Total Bilirubin 0.2 mg/dl (0.2-1.3); Total Protein 5.9 g/dl (6.3-8.2); eGFR > 60.00
[2024-04-18 09:15] LABS: Hematocrit 32.6 % (37.0-47.0); Hemoglobin 11.3 g/dL (12.0-16.0); Mean Corp Hgb Conc. 34.7 g/dL (33.0-37.0); Mean Corpuscular Hgb 30.7 pg (27.0-31.0); Mean Corpuscular Volume 88.6 fL (81.0-99.0); Mean Platelet Volume 8.7 fL (7.4-10.4); Platelet Count 363 10^3/uL (130-400); Red Blood Cell Count 3.68 10^6/uL (4.20-5.40); Red Cell Dist. Width 13.2 % (11.5-14.5); White Blood Cell Count 9.3 10^3/uL (4.8-10.8)
--- NOTE | 2024-04-18 09:42 | W.PN.HOSP.TC ---
Today's Communication/Plan
-
dc
Assessment / Plan
Assessment / Plan
PHYSICAL EXAMINATION:
General, not in
HEART: Regular. S1-S2, no murmur
LUNGS: Clear.
ABDOMEN: Soft, right upper quadrant tenderness, nondistended
Musculoskeletal, no joint swelling, no leg edema
Genitourinary, no Cesar
Neurologic, awake alert oriented x 3, she followed commands, nonfocal
Psych, calm and pleasant
# Biliary colic, Acute on chronic calculus cholecystitis; choledocholithiasis
Mild acute cholangitis
Positive transaminitis
Ultrasound is noted consistent with cholelithiasis
MRI c/w CBD stone,
S/P ERCP 04/15 : complete removal was accomplished by biliary sphincterotomy and balloon extraction.
S/P Laparoscopic cholecystectomy with intraoperative cholangiogram by Dr Hill on 04/16 with finding of choledocholithiasis
s/p ERCP 04/17 with successful stone extraction
Status post IV Rocephin and Flagyl.
Tolerating diet.
Liver function test keeps improving. Normal bilirubin.
Consulted surgery & GI, appreciate input
# hepatic steatosis, will benefit from weight loss and GI follow up. Advised to lose weight and continue to monitor
# Primary hypertension,
continue amlodipine
Add as needed medication, IV hydralazine
#Hypothyroidism, continue with Synthroid
Total discharge time spent to see the patient, examine the patient, review data and lab results, discuss discharge plan with patient and nursing staff around 65 minutes
Anticipated Discharge: Today
Subjective/Interval History
-
Date of Service: April 18, 2024
Doing well
Mild soreness in left submandibular area
No nausea, tolerated oral intake
Objective Data
-
Labs:
Laboratory Results
04/18/24
08:12
WBC 9.3
Hgb 11.3 L
Hct 32.6 L
Plt Count 363
Sodium 137
Potassium 3.7
Chloride 102
Carbon Dioxide 28
BUN 7
Creatinine 0.7
Glucose 107 H
Calcium 8.8
Total Bilirubin 0.2
AST 42 H
ALT 192 H
Alkaline Phosphatase 121
Vital Signs:
Vital Signs
Temp Pulse Resp BP Pulse Ox
98.0 F 74 16 129/78 97
04/18/24 08:01 04/18/24 08:01 04/18/24 08:01 04/18/24 08:01 04/18/24 08:01
I&O
04/17/24 04/18/24 04/19/24
06:59 06:59 06:59
Intake Total 990 / 990 1160 / 1160
Balance 990 / 990 1160 / 1160
--- NOTE | 2024-04-18 13:16 | W.DCSUMMARY ---
Discharge Summary
Discharge Data
Date of Admission: 04/13/24
Date of Discharge: 04/18/24
-
Pending Results: No
Hospital Course
63 years old female presented with abdominal discomfort. Patient was diagnosed with cholecystitis. She had elevated liver enzymes. Patient was evaluated by gastroenterology and surgery. She underwent ERCP on 04/15 with sphincterectomy and stone
extraction. She later had laparoscopic cholecystectomy on 04/16 with intraoperative cholangiogram that showed residual stones. Patient underwent another ERCP on 04/17 with successful stone extraction. Her liver enzymes came down. She did not have
elevated bilirubin. She had normal white blood cell count. She was able to tolerate diet. Imaging study also showed severe hepatic steatosis, she was advised to follow-up with gastroenterology, and to continue to lose weight. Patient was given
empiric antibiotics. Patient remained hemodynamically stable and was discharged home in a stable condition.
Discharge Plan
-
Patient Disposition: Home (Routine Discharge)
Discharge Diagnosis/Procedures: Acute on chronic cholecystitis
Hepatic steatosis
Diet: As tolerated and Low Fat
Additional Diets: If you have loose stools after surgery, switch to a low fat diet and avoid oily/greasy foods and high fat dairy
Activity: No strenuous activity
Additional Activity: Do not lift over 20lbs for 3-4 weeks
Driving Restrictions: Wait until off narcotics/comfortable twisting
Bathing Restrictions: OK to Shower
Wound Care: The glue over your incisions will flake off on its own over the next 2-3 weeks. Avoid picking or scrubbing off the glue. Do not soak in a tub for the next 2 weeks or apply ointments to your incisions.
Referrals:
Lexy Andrews DO [Family Provider] - in one to two weeks
Timmy Hill MD [Active] - in two to four weeks
Urvashi Olivares MD [Active] - in one month
Prescriptions:
New
acetaminophen 500 mg capsule
1,000 mg PO Q6H PRN (Reason: Pain) Qty: 10 0RF
Continued
amlodipine 5 mg Tablet
5 mg PO DAILY
magnesium oxide 400 mg magnesium Tablet
400 mg PO DAILY
Focus Factor
1 cap PO DAILY
levothyroxine [Synthroid] 100 mcg Tablet
100 mcg PO DAILY
Discharge Orders:
Discharge Patient (As Directed); Ordered 04/18/24
Ordered By: Marysol Bertrand
Discharge Date and Time
Discharge Date/Time: 04/18/24 12:25
Print Language: TURKISH
== END 2024-04-18 12:25 | disposition home or self-care (01) | DRG 419 ==
LOC: 3 WEST ACU 17:39
PROVIDERS: Emergency Medicine; Internal Medicine Gastroenterology; Nurse Practitioner Family; Surgery; ADMITTING PHYSICIAN Internal Medicine; CONSULT PHYSICIAN Surgery; EMERGENCY PHYSICIAN Emergency Medicine; FAMILY PHYSICIAN Family Medicine; OTHER PHYSICIAN Specialist
PROC: 0FC98ZZ Extirpation of Matter from Common Bile Duct, Via Natural or Artificial Opening Endoscopic (ICD-10-PCS; 2024-04-15)
PROC: BF5C2Z0 Other Imaging of Hepatobiliary System, All using Fluorescing Agent, Intraoperative (ICD-10-PCS; 2024-04-16)
PROC: 0FT44ZZ Resection of Gallbladder, Percutaneous Endoscopic Approach (ICD-10-PCS; 2024-04-16)
DX: K80.00 Calculus of gallbladder with acute cholecystitis without obstruction (principal); I10 Essential (primary) hypertension; E89.0 Postprocedural hypothyroidism; K76.0 Fatty (change of) liver, not elsewhere classified
CPT/HCPCS: 88304; 74183; 74300; 74329; 74330; 76000; 76700; 80053; 80076; 83690; 85025; 85027; 99285; A4300; A9575; C1769